=== PATIENT | female | born 1985 | race Caucasian/White ===

== ENCOUNTER 2017-03-10 15:40 | Emergency (ER) | payer MEDICAID ==
[~2017-03-10] VITALS: Ht 154.9 cm; Wt 85.0 kg
[~2017-03-10 15:40] MED LIST: MECL-85 PO; ONDA4TAB10 PO
[2017-03-10] MEDS ORDERED: SODIUM CHLORIDE FLUSH 10ML SYR IVF ONE (16:00)
[2017-03-10] MEDS ORDERED: ONDANSETRON 2MG/ML, 2ML IVPush ONE (16:00)
[2017-03-10] MEDS ORDERED: SODIUM CHLORIDE 0.9% 1,000ML IVBOLUS ONE (16:00)
[2017-03-10 16:46] LABS: ASPARTATE AMINO TRANSFERASE 10 U/L (15-37); BLOOD UREA NITROGEN 10 mg/dL (7-18)
[2017-03-10] MEDS ORDERED: ONDANSETRON 2MG/ML, 2ML ONE (18:15)
[2017-03-10 19:56] VITALS: BP 114/62
== END 2017-03-10 20:10 | disposition home or self-care (01) ==
LOC: ED 20:04
DX: R19.7 Diarrhea, unspecified (principal)
CPT/HCPCS: 36415; 74176; 80053; 81001; 83690; 84703; 85025; 87086; 96361; 96374; 99285; J2405; J7030

== ENCOUNTER 2017-11-26 13:19 | Emergency (ER) | payer MEDICAID ==
[~2017-11-26] VITALS: Ht 165.1 cm; Wt 81.0 kg
[2017-11-26] MEDS ORDERED: SODIUM CHLORIDE 0.9% 1,000ML IVBOLUS ONE (14:00)
[2017-11-26] MEDS ORDERED: SODIUM CHLORIDE FLUSH 10ML SYR IVF ONE (14:00)
[2017-11-26] MEDS ORDERED: ONDANSETRON 2MG/ML, 2ML IVPush ONE (14:00)
[2017-11-26] MEDS ORDERED: ACETAMINOPHEN 500 MG TABLET PO ONE (14:00)
[2017-11-26] MEDS ORDERED: KETOROLAC 30 MG/1 ML IVPush ONE (14:00)
[2017-11-26] MEDS ORDERED: ACETAMINOPHEN 500 MG TABLET ONE ×2 (14:02→14:03)
[2017-11-26] MEDS ORDERED: ONDANSETRON 2MG/ML, 2ML ONE (14:02)
[2017-11-26] MEDS ORDERED: KETOROLAC 30 MG/1 ML ONE (14:16)
[2017-11-26 14:21] LABS: BASOPHILS % (AUTO) 0 % (0-1); EOSINOPHILS % (AUTO) 0 % (1-7); LYMPHOCYTES # (AUTO) 0.76 x10^3/uL (1-3.4); LYMPHOCYTES % (AUTO) 19 % (22-44); MD NO; MEAN CORPUSCULAR HGB CONC 34.2 g/dL (32.4-35.8); MEAN CORPUSCULAR VOLUME 93.6 fL (80-100); MEAN PLATELET VOLUME 8.5 fL (7.4-10.4); MONOCYTES # (AUTO) 0.01 x10^3/uL (0.2-0.8); MONOCYTES % (AUTO) 0 % (2-9); NEUTROPHILS # (AUTO) 3.33 x10^3/uL (1.8-6.8); NEUTROPHILS % (AUTO) 81 % (42-75); PLATELET COUNT 236 x10^3/uL (130-400); RED BLOOD COUNT 4.26 x10^6/uL (3.82-5.3); RED CELL DISTRIBUTION WIDTH 12.7 % (9.6-15.2)
[2017-11-26 14:31] LABS: ALBUMIN 3.7 g/dL (3.4-5.0); ANION GAP 9 mmol/L (5-15); CALCIUM 8.7 mg/dL (8.5-10.1); CHLORIDE 104 mmol/L (98-107); CREATININE 0.71 mg/dL (0.55-1.02)
[2017-11-26 15:47] LABS: RAPID INFLUENZA A Negative (Negative); RAPID INFLUENZA B Negative (Negative)
[2017-11-26] MEDS ORDERED: OMNIPAQUE 350 MG/ML, 75ML BOTTLE ONE (15:55)
[2017-11-26] MEDS ORDERED: CEFTRIAXONE PMX 1GM/50ML 50 ML ONE (16:22)
[2017-11-26 16:26] VITALS: BP 104/60
[2017-11-26] MEDS ORDERED: CEFTRIAXONE PMX 1GM/50ML 50 ML IV ONE (16:30)
== END 2017-11-26 17:11 | disposition home or self-care (01) ==
LOC: ED 17:00
DX: K02.9 Dental caries, unspecified (principal); J01.00 Acute maxillary sinusitis, unspecified
CPT/HCPCS: 36415; 70487; 80048; 82040; 85025; 87400; 96361; 96365; 96375; 99285; J0696; J1885; J2405; J7030; Q9967

== ENCOUNTER 2018-04-15 20:53 | Emergency (ER) | payer MEDICAID ==
[~2018-04-15] VITALS: Ht 154.9 cm; Wt 90.0 kg
[2018-04-16 00:11] VITALS: BP 104/52
== END 2018-04-16 01:02 | disposition home or self-care (01) ==
LOC: ED 21:16
DX: O03.9 Complete or unspecified spontaneous abortion without complication (principal)
CPT/HCPCS: 36415; 76801; 84702; 99285

== ENCOUNTER 2018-04-22 14:07 | Emergency (ER) | payer MEDICAID ==
[~2018-04-22] VITALS: Ht 154.9 cm; Wt 90.4 kg
[2018-04-22 15:18] LABS: BASOPHILS # (AUTO) 0.02 x10^3/uL (0-0.1); BASOPHILS % (AUTO) 0 % (0-1); EOSINOPHILS # (AUTO) 0.08 x10^3/uL (0-0.4); EOSINOPHILS % (AUTO) 2 % (1-7); LYMPHOCYTES # (AUTO) 2.35 x10^3/uL (1-3.4); LYMPHOCYTES % (AUTO) 42 % (22-44); MD NO; MEAN CORPUSCULAR HEMOGLOBIN 31.3 pg (27.0-34.8); MEAN CORPUSCULAR HGB CONC 33.3 g/dL (32.4-35.8); MEAN CORPUSCULAR VOLUME 93.8 fL (80-100); MEAN PLATELET VOLUME 8.6 fL (7.4-10.4); MONOCYTES # (AUTO) 0.31 x10^3/uL (0.2-0.8); MONOCYTES % (AUTO) 6 % (2-9); NEUTROPHILS % (AUTO) 51 % (42-75); PLATELET COUNT 273 x10^3/uL (130-400); RED BLOOD COUNT 4.03 x10^6/uL (3.82-5.3); RED CELL DISTRIBUTION WIDTH 12.9 % (9.6-15.2)
[2018-04-22 15:26] LABS: ALBUMIN 3.6 g/dL (3.4-5.0); ANION GAP 8 mmol/L (5-15); CALCIUM 8.9 mg/dL (8.5-10.1); CHLORIDE 106 mmol/L (98-107)
[2018-04-22 15:32] LABS: ALANINE AMINOTRANSFERASE 22 U/L (12-78); ALKALINE PHOSPHATASE 73 U/L (45-117); BILIRUBIN,TOTAL 0.4 mg/dL (0.2-1.0); CREATININE 0.67 mg/dL (0.55-1.02)
[2018-04-22 17:09] LABS: MICROSCOPIC AUTO
[2018-04-22 17:10] LABS: CULTURE INDICATED? YES
[2018-04-22 19:07] VITALS: BP 131/74
== END 2018-04-22 19:27 | disposition home or self-care (01) ==
LOC: ED 18:38
DX: O03.9 Complete or unspecified spontaneous abortion without complication (principal); R82.99 Other abnormal findings in urine
CPT/HCPCS: 36415; 76801; 80053; 81001; 84702; 85025; 86901; 87086; 99285

== ENCOUNTER 2018-11-06 19:08 | Emergency (ER) | payer MEDICAID ==
[~2018-11-06] VITALS: Ht 154.9 cm; Wt 97.0 kg
[2018-11-06] MEDS ORDERED: IBUPROFEN 800 MG TABLET PO STA (19:24)
--- NOTE | 2018-11-06 19:49 | NUR ---
PT IN US NOW.
[2018-11-06 20:39] LABS: BASOPHILS # (AUTO) 0.07 x10^3/uL (0-0.1); BASOPHILS % (AUTO) 1 % (0-1); EOSINOPHILS # (AUTO) 0.11 x10^3/uL (0-0.4); EOSINOPHILS % (AUTO) 1 % (1-7); LYMPHOCYTES # (AUTO) 3.48 x10^3/uL (1-3.4); LYMPHOCYTES % (AUTO) 40 % (22-44); MD NO; MEAN CORPUSCULAR HGB CONC 34.3 g/dL (32.4-35.8); MEAN CORPUSCULAR VOLUME 93.4 fL (80-100); MEAN PLATELET VOLUME 8.7 fL (7.4-10.4); MONOCYTES # (AUTO) 0.52 x10^3/uL (0.2-0.8); MONOCYTES % (AUTO) 6 % (2-9); NEUTROPHILS # (AUTO) 4.65 x10^3/uL (1.8-6.8); NEUTROPHILS % (AUTO) 53 % (42-75); PLATELET COUNT 305 x10^3/uL (130-400); RED BLOOD COUNT 4.11 x10^6/uL (3.82-5.3)
--- NOTE | 2018-11-06 20:50 | NUR ---
FIRST CONTACT WITH PT. PT C/O NAUSEA, GUERRERO, BILATERAL LOWER ABD PAIN, BILATERAL LEG TENDERNESS AND PAIN, GENERALIZED ITCHNESS, VAGINAL DISCHARGE, SOB X 5 DAYS AND GETTING WORSE FROM YESTERDAY. PT STATES 6 WEEKS NOW. . PT DENIES FEVER AND CP AT THIS TIME. SPO2 AND BP MONITORS IN PLACE. CALL LIGHT WITHIN REACH. AWAITING ORDERS.
[2018-11-06 20:51] LABS: ALANINE AMINOTRANSFERASE 28 U/L (12-78); ALBUMIN 3.7 g/dL (3.4-5.0); ANION GAP 8 mmol/L (5-15); CALCIUM 8.3 mg/dL (8.5-10.1); CHLORIDE 108 mmol/L (98-107); CREATININE 0.69 mg/dL (0.55-1.02)
--- NOTE | 2018-11-06 21:03 | NUR ---
VERBAL ORDER RECEIVED FROM [facility] FOR UA, CULTURE IF IND.
[2018-11-06 21:08] LABS: ALKALINE PHOSPHATASE 72 U/L (45-117); BILIRUBIN,TOTAL 0.4 mg/dL (0.2-1.0); TOTAL PROTEIN 7.3 g/dL (6.4-8.2)
[2018-11-06 21:25] LABS: MICROSCOPIC AUTO
--- NOTE | 2018-11-06 21:28 | NUR ---
PT AMB TO BR FOR UA WITH STEADY GAIT. UA SENT. PT'S FAMILY AT BEDSIDE. PT RESTING IN GURNEY. PT AOX4. RESPS EVEN AND UNLABORED. CALL LIGHT WITHIN REACH.
[2018-11-06 21:29] LABS: CULTURE INDICATED? YES
--- NOTE | 2018-11-06 22:00 | NUR ---
PT RESTING IN [facility]. PT AOX4. RESPS EVEN AND UNLABORED. ALL MONITORS IN PLACE. CALL LIGHT WITHIN REACH. PT STATES BILATERAL LEG PAIN REMAINS THE SAME ARRIVAL. PAIN LEVEL 7/10 AT THIS TIME.
[2018-11-06 22:14] VITALS: BP 113/62
--- NOTE | 2018-11-06 22:20 | NUR ---
PT GIVEN DC INSTRUCTIONS. PT AMB TO DC WITH STEADY GAIT. NO ACUTE DISTRESS AT DC.
== END 2018-11-06 22:19 | disposition home or self-care (01) ==
LOC: ED 22:11
DX: O26.891 Other specified pregnancy related conditions, first trimester (principal); M79.89 Other specified soft tissue disorders; R20.3 Hyperesthesia; Z3A.01 Less than 8 weeks gestation of pregnancy
CPT/HCPCS: 36415; 80053; 81001; 84703; 85025; 87086; 93005; 93970; 99284

== ENCOUNTER 2018-11-20 19:01 | Emergency (ER) | payer MEDICAID ==
[~2018-11-20] VITALS: Ht 154.9 cm; Wt 95.6 kg
[2018-11-20 19:35] LABS: MICROSCOPIC AUTO
[2018-11-20 19:36] LABS: CULTURE INDICATED? YES
--- NOTE | 2018-11-20 19:39 | NUR ---
PATIENT ARRIVES WITH COMPLAINTS OF RIGHT LOWER QUADRANT PAIN THAT BEGAN THREE DAYS AGO. SHE HAS HER APPENDIX AND GALLBLADDER. SHE STATES IT IS ACCOMPANIED WITH NAUSEA AND VOMITING. SHE STATES SHE IS . HER LAST PERIOD IS OCT 01. SHE BELIEVES HERSELF TO BE 9 WEEKS . SHE HAS THREE CHILDREN AND HAS BEEN 6 TIMES. SHE HAD SOME BLOOD SPOTTING THREE DAYS AGO NOT HEAVY. SHE ARRIVES WITH BOYFRIEND. SHE STATES NAUSEA NOW AND HAS HAD IT FOR TWO WEEKS.
[2018-11-20 19:42] LABS: BASOPHILS # (AUTO) 0.02 x10^3/uL (0-0.1); BASOPHILS % (AUTO) 0 % (0-1); EOSINOPHILS # (AUTO) 0.13 x10^3/uL (0-0.4); EOSINOPHILS % (AUTO) 2 % (1-7); LYMPHOCYTES # (AUTO) 3.04 x10^3/uL (1-3.4); LYMPHOCYTES % (AUTO) 35 % (22-44); MD NO; MEAN CORPUSCULAR HEMOGLOBIN 32.5 pg (27.0-34.8); MEAN CORPUSCULAR HGB CONC 34.7 g/dL (32.4-35.8); MEAN CORPUSCULAR VOLUME 93.9 fL (80-100); MEAN PLATELET VOLUME 8.5 fL (7.4-10.4); MONOCYTES # (AUTO) 0.49 x10^3/uL (0.2-0.8); MONOCYTES % (AUTO) 6 % (2-9); NEUTROPHILS # (AUTO) 5.01 x10^3/uL (1.8-6.8); NEUTROPHILS % (AUTO) 58 % (42-75); PLATELET COUNT 286 x10^3/uL (130-400); RED BLOOD COUNT 4.07 x10^6/uL (3.82-5.3); RED CELL DISTRIBUTION WIDTH 13.5 % (9.6-15.2)
[2018-11-20 19:57] LABS: ALANINE AMINOTRANSFERASE 20 U/L (12-78); ALBUMIN 3.7 g/dL (3.4-5.0); ANION GAP 8 mmol/L (5-15); CALCIUM 8.4 mg/dL (8.5-10.1); CHLORIDE 107 mmol/L (98-107); CREATININE 0.61 mg/dL (0.55-1.02)
[2018-11-20 20:15] LABS: ALKALINE PHOSPHATASE 76 U/L (45-117); BILIRUBIN,TOTAL 0.4 mg/dL (0.2-1.0)
[2018-11-20 21:19] VITALS: BP 123/78
--- NOTE | 2018-11-20 21:20 | NUR ---
discharge teaching reviewed with patient, shows understanding.
== END 2018-11-20 21:27 | disposition home or self-care (01) ==
LOC: ED 21:21
DX: O23.11 Infections of bladder in pregnancy, first trimester (principal); Z3A.01 Less than 8 weeks gestation of pregnancy
CPT/HCPCS: 36415; 76801; 80053; 81001; 84702; 85025; 87086; 99284

== ENCOUNTER 2019-01-12 19:44 | Emergency (ER) | payer MEDICAID ==
[~2019-01-12] VITALS: Ht 154.9 cm; Wt 93.3 kg
[2019-01-12 19:46] VITALS: BP 135/82
[2019-01-12 20:18] LABS: BASOPHILS % (AUTO) 0 % (0-1); EOSINOPHILS # (AUTO) 0.07 x10^3/uL (0-0.4); EOSINOPHILS % (AUTO) 1 % (1-7); LYMPHOCYTES # (AUTO) 2.44 x10^3/uL (1-3.4); LYMPHOCYTES % (AUTO) 30 % (22-44); MD NO; MEAN CORPUSCULAR HEMOGLOBIN 32.3 pg (27.0-34.8); MEAN CORPUSCULAR HGB CONC 34.8 g/dL (32.4-35.8); MEAN CORPUSCULAR VOLUME 92.7 fL (80-100); MEAN PLATELET VOLUME 8.5 fL (7.4-10.4); MONOCYTES # (AUTO) 0.26 x10^3/uL (0.2-0.8); MONOCYTES % (AUTO) 3 % (2-9); NEUTROPHILS # (AUTO) 5.33 x10^3/uL (1.8-6.8); NEUTROPHILS % (AUTO) 66 % (42-75); PLATELET COUNT 283 x10^3/uL (130-400); RED BLOOD COUNT 3.93 x10^6/uL (3.82-5.3); RED CELL DISTRIBUTION WIDTH 13.6 % (9.6-15.2)
[2019-01-12 20:25] LABS: ALANINE AMINOTRANSFERASE 14 U/L (12-78); ALBUMIN 3.3 g/dL (3.4-5.0); ANION GAP 5 mmol/L (5-15); CALCIUM 8.5 mg/dL (8.5-10.1); CHLORIDE 111 mmol/L (98-107); CREATININE 0.63 mg/dL (0.55-1.02)
[2019-01-12 20:42] LABS: ALKALINE PHOSPHATASE 59 U/L (45-117); BILIRUBIN,TOTAL 0.4 mg/dL (0.2-1.0); TOTAL PROTEIN 6.8 g/dL (6.4-8.2)
--- NOTE | 2019-01-12 20:44 | NUR ---
pt called to room from lobby
[2019-01-12 21:01] LABS: MICROSCOPIC INDICATED
[2019-01-12] MEDS ORDERED: PNV11TAB5 PO (21:08)
--- NOTE | 2019-01-12 21:08 | NUR ---
PT TO ED FOR N/V/SINCE FRIDAY AND BLOOD IN VOMIT SINCE YESTERDAY. PT ALSO REPORTS LOWER LEFT QUAD ABD CRAMPING AND SMALL AMOUNT OF DARK DISCHARGE SINCE YESTERDAY. PT IS 14 WEEK . CONNECTED TO MONITORS. VSS. AWAITING FURTHER ORDERS.
[2019-01-12 21:13] LABS: CULTURE INDICATED? YES
--- NOTE | 2019-01-12 21:38 | NUR ---
edmd to bedside.
--- NOTE | 2019-01-12 22:21 | NUR ---
Patient/Caregiver given discharge instructions and they have confirmed that they understand the instructions. Patient ambulatory with steady gait.
== END 2019-01-12 22:23 | disposition home or self-care (01) ==
LOC: ED 21:50
DX: O21.9 Vomiting of pregnancy, unspecified (principal); R10.2 Pelvic and perineal pain; Z3A.14 14 weeks gestation of pregnancy
CPT/HCPCS: 36415; 76815; 80053; 81001; 84702; 85025; 87086; 99284

== ENCOUNTER 2019-02-10 23:31 | Emergency (ER) | payer MEDICAID, OTHER ==
[~2019-02-10] VITALS: Ht 154.9 cm; Wt 93.7 kg
[~2019-02-10 23:31] MED LIST changes: +PNV11TAB5 PO
[2019-02-11 00:58] LABS: BASOPHILS # (AUTO) 0.03 x10^3/uL (0-0.1); BASOPHILS % (AUTO) 0 % (0-1); EOSINOPHILS # (AUTO) 0.14 x10^3/uL (0-0.4); EOSINOPHILS % (AUTO) 2 % (1-7); LYMPHOCYTES # (AUTO) 2.62 x10^3/uL (1-3.4); LYMPHOCYTES % (AUTO) 34 % (22-44); MD NO; MEAN CORPUSCULAR HGB CONC 34.7 g/dL (32.4-35.8); MEAN CORPUSCULAR VOLUME 92.4 fL (80-100); MEAN PLATELET VOLUME 8.4 fL (7.4-10.4); MONOCYTES # (AUTO) 0.37 x10^3/uL (0.2-0.8); MONOCYTES % (AUTO) 5 % (2-9); NEUTROPHILS # (AUTO) 4.59 x10^3/uL (1.8-6.8); NEUTROPHILS % (AUTO) 59 % (42-75); PLATELET COUNT 262 x10^3/uL (130-400); RED BLOOD COUNT 3.74 x10^6/uL (3.82-5.3); RED CELL DISTRIBUTION WIDTH 13.8 % (9.6-15.2)
--- NOTE | 2019-02-11 00:58 | NUR ---
Pt ambulated to bathroom, no assistance required. Urine sample requested, instructions provided on how to obtain clean catch sample.
[2019-02-11] MEDS ORDERED: ACETAMINOPHEN 325 MG TABLET ONE (01:10)
--- NOTE | 2019-02-11 01:12 | NUR ---
Dr. Viramontes at bedside to evaluate pt and discuss ED findings. Pt medicated per JAN.
[2019-02-11] MEDS ORDERED: ACETAMINOPHEN 325 MG TABLET PO ONE (01:30)
[2019-02-11 01:36] LABS: MICROSCOPIC NOT IND
[2019-02-11 01:40] LABS: CULTURE INDICATED? NO
[2019-02-11 02:09] VITALS: BP 115/53
--- NOTE | 2019-02-11 02:09 | NUR ---
Patient discharged with instruction. verbalized understanding.
== END 2019-02-11 02:11 | disposition home or self-care (01) ==
LOC: ED 23:59
DX: O26.892 Other specified pregnancy related conditions, second trimester (principal); Z3A.19 19 weeks gestation of pregnancy; G89.11 Acute pain due to trauma; R07.89 Other chest pain; V47.0XXA Car driver injured in collision with fixed or stationary object in nontraffic accident, initial encounter; Y93.89 Activity, other specified; Y92.89 Other specified places as the place of occurrence of the external cause; Y99.8 Other external cause status
CPT/HCPCS: 36415; 76641; 76815; 81003; 85025; 86901; 99284

== ENCOUNTER 2019-04-06 21:08 | Outpatient (CLI) | payer MEDICAID ==
[~2019-04-06] VITALS: Ht 154.9 cm; Wt 94.0 kg
[2019-04-06 21:37] LABS: MICROSCOPIC INDICATED
[2019-04-06] MEDS ORDERED: CALCIUM CARBONATE 500 MG TAB.CHEW ONE (22:11)
[2019-04-06 23:29] LABS: BASOPHILS # (AUTO) 0.02 x10^3/uL (0-0.1); BASOPHILS % (AUTO) 0 % (0-1); EOSINOPHILS # (AUTO) 0.14 x10^3/uL (0-0.4); EOSINOPHILS % (AUTO) 2 % (1-7); LYMPHOCYTES # (AUTO) 2.43 x10^3/uL (1-3.4); LYMPHOCYTES % (AUTO) 30 % (22-44); MD NO; MEAN CORPUSCULAR HEMOGLOBIN 32.5 pg (27.0-34.8); MEAN CORPUSCULAR HGB CONC 33.4 g/dL (32.4-35.8); MEAN CORPUSCULAR VOLUME 97.4 fL (80-100); MEAN PLATELET VOLUME 8.7 fL (7.4-10.4); MONOCYTES # (AUTO) 0.46 x10^3/uL (0.2-0.8); MONOCYTES % (AUTO) 6 % (2-9); NEUTROPHILS # (AUTO) 4.94 x10^3/uL (1.8-6.8); NEUTROPHILS % (AUTO) 62 % (42-75); PLATELET COUNT 229 x10^3/uL (130-400); RED BLOOD COUNT 3.67 x10^6/uL (3.82-5.3); RED CELL DISTRIBUTION WIDTH 14.5 % (9.6-15.2)
[2019-04-06] MEDS ORDERED: ACETAMINOPHEN 325 MG TABLET ONE (23:37)
[2019-04-06 23:38] LABS: ALANINE AMINOTRANSFERASE 15 U/L (12-78); ALBUMIN 2.8 g/dL (3.4-5.0); ANION GAP 7 mmol/L (5-15); CALCIUM 8.3 mg/dL (8.5-10.1); CHLORIDE 111 mmol/L (98-107); CREATININE 0.52 mg/dL (0.55-1.02)
[2019-04-06 23:40] LABS: ALKALINE PHOSPHATASE 76 U/L (45-117); BILIRUBIN,TOTAL 0.3 mg/dL (0.2-1.0); TOTAL PROTEIN 6.4 g/dL (6.4-8.2)
[2019-04-07] MEDS ORDERED: ACETAMINOPHEN 325 MG TABLET PO PRN
[2019-04-07] MEDS ORDERED: NITROFURANTOIN (MACROBID) 100 MG CAPSULE ONE (00:44)
[2019-04-07] MEDS ORDERED: NITROFURANTOIN (MACROBID) 100 MG CAPSULE PO ONE (01:00)
== END 2019-04-07 01:00 | disposition home or self-care (01) ==
LOC: LDOP 21:08
PROVIDERS: ATTEND Obstetrics & Gynecology
DX: O32.2XX0 Maternal care for transverse and oblique lie, not applicable or unspecified (principal); O44.33 Partial placenta previa with hemorrhage, third trimester; O26.893 Other specified pregnancy related conditions, third trimester; R10.9 Unspecified abdominal pain; O09.523 Supervision of elderly multigravida, third trimester; Z3A.30 30 weeks gestation of pregnancy
CPT/HCPCS: 36415; 76815; 80053; 81001; 83615; 84550; 85025; 86140; 87086; 99211; G0463

== ENCOUNTER 2019-05-19 23:12 | Emergency (ER) | payer MEDICAID ==
[~2019-05-19] VITALS: Ht 154.9 cm; Wt 93.8 kg
[2019-05-19 23:15] VITALS: BP 121/79
--- NOTE | 2019-05-19 23:25 | NUR ---
ASSUMED CARE OF PT AT THIS TIME FROM TRIAGE. AMBULAORY TO ROOM WITH STEADY GAIT. PT REPORTS "I'M 31 WEEKS AND I HAVE AN ABSCESS ON MY LEFT BUTTCHEEK, LIKE BELOW MY VAGINA, IT'S PAINFUL HURTS TO SIT." DR. BREWER AT BEDSIDE FOR EVALUATION. RATES PAIN 08/19. G6,P3,A2. LMP OCT 01, 2018. PT DENIES ANY VAGINAL BLEEDING OR DISCHARGE AND ANY CRAMPING, REPORTS "NORMAL BABY MOVEMENTS, IS ALL GOOD, JUST NEED THIS THING TO STOP HURTING. NOT SURE IF AN INGROWN HAIR OR SPIDER BITE." CALL LIGHT IN REACH. FALL PRECAUTIONS IN PLACE. SIGNIFICANT OTHER AT BEDSIDE. A&OX4.
[2019-05-19] MEDS ORDERED: LIDOCAINE-MPF 1%, 5ML ONE (23:34)
--- NOTE | 2019-05-19 23:47 | NUR ---
ERIC NICKERSON AT BEDSIDE FOR I&D
[2019-05-20] MEDS ORDERED: LIDOCAINE-MPF 1%, 5ML INFIL ONE
--- NOTE | 2019-05-20 00:12 | NUR ---
ERIC NICKERSON COMPLETED I&D WITH PACKING/DRESSING IN PLACE BY PA. AWAITING CHART AND DISCHARGE PAPERS FROM [facility].
--- NOTE | 2019-05-20 00:21 | NUR ---
Patient/Caregiver given discharge instructions and they have confirmed that they understand the instructions. Patient ambulatory with steady gait.
== END 2019-05-20 00:23 | disposition home or self-care (01) ==
LOC: ED 23:59
DX: O26.893 Other specified pregnancy related conditions, third trimester (principal); L02.31 Cutaneous abscess of buttock; Z3A.33 33 weeks gestation of pregnancy
CPT/HCPCS: 10060; 99283

== ENCOUNTER 2020-07-19 18:48 | Emergency (ER) | payer MEDICAID ==
[~2020-07-19] VITALS: Ht 154.9 cm; Wt 94.2 kg
[~2020-07-19 18:48] MED LIST changes: +IBUP-1222 PO
--- NOTE | 2020-07-19 19:12 | NUR ---
BOBCAT DRIVER/LABOR: PT. TO ROOM FROM LOBBY AT THIS TIME.
[2020-07-19 19:26] LABS: ANION GAP 5 mmol/L (5-15); CALCIUM 8.7 mg/dL (8.5-10.1); CHLORIDE 109 mmol/L (98-107); CREATININE 0.69 mg/dL (0.55-1.02)
[2020-07-19 19:27] LABS: ALBUMIN 3.7 g/dL (3.4-5.0)
[2020-07-19 19:38] LABS: MICROSCOPIC AUTO
[2020-07-19 19:55] LABS: MEAN CORPUSCULAR HEMOGLOBIN 32.5 pg (27.0-34.8); MEAN CORPUSCULAR HGB CONC 34.7 g/dL (32.4-35.8); MEAN CORPUSCULAR VOLUME 93.5 fL (80-100); MEAN PLATELET VOLUME 8.8 fL (7.4-10.4); PLATELET COUNT 257 x10^3/uL (130-400); RED BLOOD COUNT 4.07 x10^6/uL (3.82-5.3); RED CELL DISTRIBUTION WIDTH 13.8 % (9.6-15.2)
[2020-07-19 19:56] LABS: MD YES
[2020-07-19 20:19] LABS: BASOPHILS # (AUTO) 0.02 x10^3/uL (0-0.1); BASOPHILS % (AUTO) 0 % (0-1); EOSINOPHILS # (AUTO) 0.25 x10^3/uL (0-0.4); EOSINOPHILS % (AUTO) 4 % (1-7); LYMPHOCYTES # (AUTO) 2.25 x10^3/uL (1-3.4); LYMPHOCYTES % (AUTO) 33 % (22-44); MONOCYTES # (AUTO) 0.42 x10^3/uL (0.2-0.8); MONOCYTES % (AUTO) 6 % (2-9); NEUTROPHILS # (AUTO) 3.94 x10^3/uL (1.8-6.8); NEUTROPHILS % (AUTO) 57 % (42-75)
[2020-07-19 20:31] LABS: EOS#(MANUAL) 0.28 x10^3/uL (0.0-0.4); EOS% (MANUAL) 4 % (1-7); LYMPH#(MANUAL) 2.07 x10^3/uL (1-3.4); LYMPHS% (MANUAL) 30 % (22-44); MONOS#(MANUAL) 0.28 x10^3/uL (0.3-2.7); MONOS% (MANUAL) 4 % (2-9); SEG#(MANUAL) 4.28 x10^3/uL (1.8-6.8); SEGS% (MANUAL) 62 % (42-75)
[2020-07-19 20:34] LABS: <PLATELET ESTIMATE> ADEQUATE; <PLT MORPHOLOGY> NORMAL PLT MORPH
[2020-07-19 21:09] VITALS: BP 103/60
== END 2020-07-19 21:11 | disposition home or self-care (01) ==
LOC: ED 20:16
DX: O20.0 Threatened abortion (principal); O23.11 Infections of bladder in pregnancy, first trimester; Z3A.01 Less than 8 weeks gestation of pregnancy
CPT/HCPCS: 36415; 76801; 80048; 81001; 82040; 84702; 85025; 86901; 87086; 99284

== ENCOUNTER 2020-09-01 08:00 | Outpatient (CLI) | payer MEDICAID | END 2020-09-01 23:59 | disposition home or self-care (01) | LOC: STAR 08:00 → EDSTATUS 09-06 12:00 | PROVIDERS: ATTEND Obstetrics & Gynecology | DX: Z01.812 Encounter for preprocedural laboratory examination (principal); Z20.828 Contact with and (suspected) exposure to other viral communicable diseases | CPT/HCPCS: 36415; 87635 ==

== ENCOUNTER 2020-09-04 20:18 | Emergency (ER) | payer MEDICAID ==
[~2020-09-04] VITALS: Ht 154.9 cm; Wt 92.8 kg
[2020-09-04] MEDS ORDERED: SODIUM CHLORIDE FLUSH 10ML SYR IVF ONE ×2 (21:00→21:30)
--- NOTE | 2020-09-04 21:08 | NUR ---
ASSUMED CARE OF PATIENT. PATIENT REPORTS SHE WAS RECENTLY TOLD SHE WAS BUT THAT THE BABY HAD NO HEARTBEAT. PT IS SUPPOSED TO GET A D&C ON FRI. PT REPORTS BLEEDING FOR THE LAST TWO DAYS WITH LOW BACK PAIN. VS STABLE. FAMILY AT BEDSIDE. NO ACUTE DISTRESS NOTED. WILL CONTINUE TO MONITOR.
--- NOTE | 2020-09-04 21:10 | NUR ---
DR BREWER IN ROOM
[2020-09-04] MEDS ORDERED: KETOROLAC 30 MG/1 ML ONE (21:27)
[2020-09-04] MEDS ORDERED: MORPHINE SULFATE 4 MG/ML, 1ML ONE (21:28)
[2020-09-04] MEDS ORDERED: KETOROLAC 30 MG/1 ML IVPush ONE (21:30)
[2020-09-04] MEDS ORDERED: MORPHINE SULFATE 4 MG/ML, 1ML IVPush PRN (21:30)
[2020-09-04 21:52] LABS: BASOPHILS % (AUTO) 0 % (0-1); EOSINOPHILS % (AUTO) 2 % (1-7); LYMPHOCYTES % (AUTO) 41 % (22-44); MEAN CORPUSCULAR HGB CONC 34.3 g/dL (32.4-35.8); MEAN PLATELET VOLUME 8.9 fL (7.4-10.4); MONOCYTES % (AUTO) 5 % (2-9); NEUTROPHILS % (AUTO) 52 % (42-75); PLATELET COUNT 276 x10^3/uL (130-400); RED BLOOD COUNT 4.34 x10^6/uL (3.82-5.3); RED CELL DISTRIBUTION WIDTH 12.7 % (9.6-15.2)
[2020-09-04 21:55] LABS: MD NO
[2020-09-04 21:58] LABS: ALBUMIN 3.8 g/dL (3.4-5.0); ANION GAP 5 mmol/L (5-15); CALCIUM 8.9 mg/dL (8.5-10.1); CHLORIDE 106 mmol/L (98-107)
[2020-09-04 22:18] LABS: ALANINE AMINOTRANSFERASE 15 U/L (12-78); ALKALINE PHOSPHATASE 92 U/L (45-117); BILIRUBIN,TOTAL 0.4 mg/dL (0.2-1.0); CREATININE 0.65 mg/dL (0.55-1.02); TOTAL PROTEIN 7.8 g/dL (6.4-8.2)
[2020-09-04 22:22] LABS: BILIRUBIN, DIRECT < 0.1 mg/dL (0.1-0.2); BILIRUBIN,INDIRECT 0.3 mg/dL (0.0-2.0)
[2020-09-04 23:08] LABS: MICROSCOPIC INDICATED
--- NOTE | 2020-09-04 23:44 | NUR ---
PELVIC EXAM DONE BY DR BREWER. NO ACUTE DISTRESS NOTED. FAMILY AT BEDSIDE. PT TO BE DSICHARGED.
[2020-09-05 00:16] VITALS: BP 108/84
== END 2020-09-05 00:20 | disposition home or self-care (01) ==
LOC: ED 22:51
DX: O02.1 Missed abortion (principal); O46.91 Antepartum hemorrhage, unspecified, first trimester; Z3A.09 9 weeks gestation of pregnancy
CPT/HCPCS: 36415; 76801; 80048; 80076; 81001; 82040; 83690; 84702; 85025; 86901; 96374; 96375; 99284; J1885; J2270

== ENCOUNTER 2021-06-11 14:40 | Emergency (ER) | payer MEDICAID ==
[~2021-06-11] VITALS: Ht 154.9 cm; Wt 93.6 kg
--- NOTE | 2021-06-11 15:34 | NUR ---
PSYCHIATRIC MENTAL HEALTH NURSE: PT TO ROOM FROM LOBBY
--- NOTE | 2021-06-11 15:55 | NUR ---
6 weeks , c/o epigastric pain right after eats and "feels stomach swelling up" started 3 days, states the feeling goes away after she vomits. Pt reports feeling dizzy, generalized weakness and feeling like wants to pass out. ALSO WITH SOB FOR A FEW DAYS G8,P6, A1 [employer]
--- NOTE | 2021-06-11 15:56 | NUR ---
DR BANUELOS AT BEDSIDE, PT ASSESSMENT, POC DISCUSSED AND QUESTIONS ANSWERED. PT RPTS EPISODE OF DIZZINESS TODAY WHILE ON A LADDER. C/OEPIGASTRIC PAIN ANYTIME SHE EATS OR DRINKS SINCE06/07. + PER HOME EPT
--- NOTE | 2021-06-11 15:56 | NUR ---
CC UA SENT FOR ANALYSIS
[2021-06-11] MEDS ORDERED: ONDANSETRON 2MG/ML, 2ML ONE (16:19)
--- NOTE | 2021-06-11 16:21 | NUR ---
PIV EST W/O DIFFICULTY, IVF INFUSING NOTED AND PT MED FOR NAUSEA. CALL LIGHT W/I REACH, NAD NOTED.
[2021-06-11 16:27] LABS: BASOPHILS % (AUTO) 0 % (0-1); EOSINOPHILS % (AUTO) 1 % (1-7); LYMPHOCYTES % (AUTO) 34 % (22-44); MEAN CORPUSCULAR HEMOGLOBIN 31.7 pg (27.0-34.8); MEAN CORPUSCULAR HGB CONC 34.4 g/dL (32.4-35.8); MEAN PLATELET VOLUME 8.3 fL (7.4-10.4); MONOCYTES % (AUTO) 6 % (2-9); NEUTROPHILS % (AUTO) 59 % (42-75); PLATELET COUNT 261 x10^3/uL (130-400); RED BLOOD COUNT 4.22 x10^6/uL (3.82-5.3); RED CELL DISTRIBUTION WIDTH 13.3 % (9.6-15.2)
[2021-06-11] MEDS ORDERED: SODIUM CHLORIDE 0.9% 1,000ML IVBOLUS ONE (16:30)
[2021-06-11] MEDS ORDERED: ONDANSETRON 2MG/ML, 2ML IVPush ONE (16:30)
[2021-06-11] MEDS ORDERED: SODIUM CHLORIDE 0.9% 1,000 ML IV ONE (16:30)
[2021-06-11] MEDS ORDERED: SODIUM CHLORIDE FLUSH 10ML SYR IVF ONE (16:30)
[2021-06-11 16:37] LABS: ALANINE AMINOTRANSFERASE 18 U/L (12-78); ALBUMIN 3.6 g/dL (3.4-5.0); ANION GAP 7 mmol/L (5-15); CALCIUM 8.6 mg/dL (8.5-10.1); CHLORIDE 107 mmol/L (98-107)
[2021-06-11 16:54] LABS: ALKALINE PHOSPHATASE 71 U/L (45-117); BILIRUBIN,TOTAL 0.6 mg/dL (0.2-1.0); TOTAL PROTEIN 7.2 g/dL (6.4-8.2)
[2021-06-11] MEDS ORDERED: ALUMINUM/MAG/SIMETHICONE 30 ML UDC PO PRN (18:30)
[2021-06-11 18:48] VITALS: BP 115/58
--- NOTE | 2021-06-11 18:49 | NUR ---
IVF INFUSED, PT DENIES PAIN OR NAUSEA. VERBALIZES FEELING HUNGRY. SALTINES, ESTEBAN CRACKERS AND SPRITE AT BEDSIDE. CALL LIGHT W/I REACH. URINE RESULTS PENDING.
--- NOTE | 2021-06-11 19:09 | NUR ---
TOLLERATED PO WELL, NAD NOTED.
[2021-06-11 19:18] LABS: MICROSCOPIC INDICATED
--- NOTE | 2021-06-11 19:43 | NUR ---
Patient/Caregiver given discharge instructions and they have confirmed that they understand the instructions. Patient ambulatory with steady gait. NAD, all questions answered appropriately, denies additional needs at this time. No personal belongings left in room after discharge.
== END 2021-06-11 19:44 | disposition home or self-care (01) ==
LOC: ED 18:33
DX: O26.891 Other specified pregnancy related conditions, first trimester (principal); K29.00 Acute gastritis without bleeding; R42 Dizziness and giddiness; R11.2 Nausea with vomiting, unspecified; R94.31 Abnormal electrocardiogram [ECG] [EKG]; R10.2 Pelvic and perineal pain; Z3A.01 Less than 8 weeks gestation of pregnancy
CPT/HCPCS: 36415; 76700; 76801; 80053; 81001; 83690; 84702; 85025; 87086; 93005; 96361; 96374; 99285; J2405; J7030